=== PATIENT | female | born 1945 ===

== ENCOUNTER 2017-10-28 23:02 | Inpatient (IN) | payer MEDICARE, MEDICAID ==
[2017-10-28 23:08] VITALS: O2SAT 98
--- NOTE | 2017-10-28 23:27 | ED PDOC ---
Psych Transfer Clearance - Clearance Statement Clearance Statement: Reviewed vital signs, lab results and transfer papers. Patient clinically stable for psychiatric admission.
[2017-10-28] MEDS ORDERED: Magnesium Hydroxide Susp 30 ml UD PO PRN (23:59)
[2017-10-28] MEDS ORDERED: Alum-Mag Hydrox-Simethicone Susp (30 mL) PO PRN (23:59)
[2017-10-28] MEDS ORDERED: Bismuth Subsalicylate 262 mg/15 ml Sus (240 ml) PO PRN (23:59)
--- NOTE | 2017-10-29 00:09 | PCM.BM ---
<Matilde Cabral - Last Filed: 10/29/17 00:07> Treatment Plan Problems - Problems identified on initial assessmt Agitated/aggressive behavior Date Initiated: 10/29/17 Time Initiated: 00:07 Assessment reference: NA Status: Active Ineffective impulse control Date Initiated: 10/29/17 Time Initiated: 00:08 Assessment reference: NA Status: Active Treatment assets and liabiliti Patient Assests: good support system Patient Liabilities: medical problems, imparied memory - Milieu Protocol Maintain good personal hygiene: daily Encourage regular showers, daily Remind patient to perform daily oral care, other Assist patient to perform ADL's (prn) Conduct patient checks and document Observation sheet: Q15 minutes Maintain personal safety: every shift Educate patient to report safety concerns to staff, every shift Monitor environment for contraband/sharps Medication safety: Monitor for expected outcome, potential side effects: every shift, Assess barriers to learning: every shift, Assess readiness for medication education: every shift <Merissa Jones - Last Filed: 10/29/17 10:20> - Diagnosis (1) Dementia with behavioral disturbance Status: Acute Interventions: Medication management, Individual and group therapy, Psychoeducation 10/29/17 10:20 <Shree Richardson - Last Filed: 11/04/17 11:17> Family Contact Family involvement: Family/SO is involved Family contact: Patient agrees to contact, Family has been contacted by patient , Telephone contact initiated by staff Family contact name: Karla (Daughter/YONI [phone]) Family contacted how many times per week?: 3 Family contact comment: Leather Whitener spoke with pt's daughter and Karla VALLEJO [phone], to introduce himself and explain that services and dynamics of the unit. Leather Whitener explained main goals of pt's treatment to stabilize her mood/behaviors and eventually refer her back to [facility] in [place]. Karla had no questions at this time as she had already spoken with Dr. Jones. Karla did report that her uncle two days ago, so she and her would be out of town for several days. - Goals for Treatment Patient goals for treatment: Unable to provide. Patient's family/SO goals for treatment: Daughter would like pt to be stabilized on medication so she is calmer and more behaviorally controlled. Discharge/Continuing Care - Education Needs Education Needs: Family Medication, Family Diagnosis/Disease Process, Family Placement options, Family Aftercare Safety Plan, Patient Medication, Patient Diagnosis/Disease Process, Patient Placement options, Patient Aftercare Safety Plan - Discharge Discharge Criteria: Tolerates medication w/o severe side effects, Free of agitation, Normal sleep pattern, Reduction of target symptoms Discharge to:: Custodial Facility - Treatment Team Participation Discussed with Family/SO: Yes Was Patient/Family/SO present at Treatment Team Meeting: Yes
[2017-10-29] MEDS ORDERED: Bisacodyl 5mg EC Tab PO PRN (06:32)
[2017-10-29 06:47] LABS: HEMOGLOBIN 13.4 g/dL (12.0-16.0); MEAN CELL VOLUME 93.3 fl (81.0-99.0); MEAN CORPUSCULAR HEMOGLOBIN 30.8 pg (27.0-31.0); RBC 4.34 Mil/uL (3.80-5.20); RED CELL DISTRIBUTION WIDTH 15.3 % (11.5-14.5); WHITE BLOOD COUNT 4.2 K/uL (4.8-10.8)
[2017-10-29 06:49] LABS: ALBUMIN 4.2 g/dL (3.5-5.0); ALT/SGPT 38 U/L (9-52); AST/SGOT 49 U/L (14-36); BLOOD UREA NITROGEN 14 mg/dl (7-17); CALCIUM 9.1 mg/dL (8.4-10.2); GFR AFRICAN-AMERICAN > 60; GFR NON-AFRICAN AMERICAN > 60; HDL CHOLESTEROL 49 MG/DL (30-70)
[2017-10-29 06:58] LABS: IRON 16 ug/dL (37-170)
[2017-10-29 07:02] LABS: LDL CHOLESTEROL 77 mg/dL (0-129)
[2017-10-29 07:07] LABS: % IRON SATURATION 6 % (20-55); TOTAL IRON BINDING CAPACITY 245 ug/dL (250-450)
[2017-10-29 07:08] LABS: T4 9.26 ug/dl (5.5-11.0)
--- NOTE | 2017-10-29 11:38 | CP.PCM.CON ---
History of Present Illness - History of Present Illness History of Present Illness: 72 yo pmhx of Dementia with behavioral aggression presented to [facility] with agitation, aggression and hostility. Due to her current state of decreased mental clarity and appropriate interaction, most of her history was gathered by staff from her daughter. She was observed to punch, kick, spit on staff. Currently, she was seen and examined at bedside lying in a R sided contracted state. Her interaction was limited due to recent aggression with a recent administered dose of Ativan 0.5 mg. Her speech was limited and incoherent. Review of Systems - Constitutional Constitutional: As Per HPI Past Patient History - Past Medical History & Family History Past Medical History?: Yes - Past Social History Smoking Status: Unknown If Ever Smoked Home Situation {Lives}: Snf - CARDIAC Hx Cardiac Disorders: No Hx Hypertension: No - PULMONARY Hx Tuberculosis: No - NEUROLOGICAL HX Cerebrovascular Accident: No Hx Seizures: No - HEMATOLOGICAL/ONCOLOGICAL Hx Cancer: No Hx Human Immunodeficiency Virus (HIV): No - MUSCULOSKELETAL/RHEUMATOLOGICAL Hx Falls: Yes - GENITOURINARY/GYNECOLOGICAL Hx Sexually Transmitted Disorders: No - PSYCHIATRIC Hx Psychosis: Yes Hx Substance Use: No Other/Comment: Dementia - SURGICAL HISTORY Other/Comment: s/p fx left 5th metacarpal - ANESTHESIA Hx Anesthesia Reactions: No Meds Allergies/Adverse Reactions: Allergies Allergy/AdvReac Type Severity Reaction Status Date / Time Penicillins Allergy SHORTNESS Verified 10/27/17 18:04 OF BREATH - Medications Medications: Current Medications Acetaminophen (Tylenol 325mg Tab) 650 mg PO Q4 PRN PRN Reason: Pain, moderate (4-7) Al Hydrox/Mg Hydrox/Simethicone (Maalox Plus 30 Ml) 30 ml PO Q4 PRN PRN Reason: Dyspepsia Bisacodyl (Dulcolax) 10 mg PO DAILY PRN PRN Reason: Constipation Bismuth Subsalicylate (Pepto-Bismol) 524 mg PO Q4 PRN PRN Reason: Diarrhea Haloperidol (Haldol) 0.5 mg PO Q4 PRN PRN Reason: Agitation Last Admin: 10/29/17 01:25 Dose: 0.5 mg Haloperidol Lactate (Haldol) 0.5 mg IM Q4 PRN PRN Reason: Agitation Lorazepam (Ativan) 0.5 mg PO HS PRN PRN Reason: Insomnia Stop: 11/11/17 23:59 Lorazepam (Ativan) 0.5 mg PO Q6 PRN PRN Reason: Anixety/Agitation Stop: 11/11/17 23:59 Last Admin: 10/29/17 08:54 Dose: 0.5 mg Magnesium Hydroxide (Milk Of Magnesia) 30 ml PO HS PRN PRN Reason: Constipation Memantine (Namenda) 10 mg PO BID IVONNE Last Admin: 10/29/17 08:54 Dose: 10 mg Sennosides (Senokot Tab) 8.6 mg PO HS IVONNE Physical Exam - Constitutional Appears: No Acute Distress - Eye Exam Eye Exam: EOMI - Neck Exam Neck exam: Positive for: Full Rom - Respiratory Exam Respiratory Exam: Clear to Auscultation Bilateral, NORMAL BREATHING PATTERN. absent: Wheezes - Cardiovascular Exam Cardiovascular Exam: +S1, +S2 - GI/Abdominal Exam GI & Abdominal Exam: Normal Bowel Sounds, Soft. absent: Tenderness - Neurological Exam Neurological exam: Altered Results - Vital Signs Recent Vital Signs: Last Vital Signs Temp 98.0 F 10/28/17 23:05 Pulse 83 10/28/17 23:05 Resp 16 10/28/17 23:05 BP 127/81 10/28/17 23:05 Pulse Ox 98 10/28/17 23:05 - Labs Result Diagrams: 10/29/17 05:45 10/29/17 05:45 Labs: Laboratory Results - last 24 hr 10/29/17 10/29/17 10/29/17 05:45 05:45 05:45 WBC 4.2 L RBC 4.34 Hgb 13.4 Hct 40.5 MCV 93.3 MCH 30.8 MCHC 33.0 RDW 15.3 H Plt Count 214 Sodium 147 Potassium 3.7 Chloride 108 H Carbon Dioxide 23 Anion Gap 20 BUN 14 Creatinine 0.7 Est GFR ( Amer) > 60 Est GFR (Non-Af Amer) > 60 Random Glucose 103 Calcium 9.1 Iron 16 L TIBC 245 L % Saturation 6 L Ferritin 301.0 H Total Bilirubin 0.9 AST 49 H ALT 38 Alkaline Phosphatase 103 Total Protein 8.4 H Albumin 4.2 Globulin 4.2 H Albumin/Globulin Ratio 1.0 Triglycerides 86 Cholesterol 175 LDL Cholesterol Direct 77 HDL Cholesterol 49 Vitamin B12 488 Free T4 Thyroxine (T4) 9.26 TSH 3rd Generation 0.38 L 10/29/17 05:45 WBC RBC Hgb Hct MCV MCH MCHC RDW Plt Count Sodium Potassium Chloride Carbon Dioxide Anion Gap BUN Creatinine Est GFR ( Amer) Est GFR (Non-Af Amer) Random Glucose Calcium Iron TIBC % Saturation Ferritin Total Bilirubin AST ALT Alkaline Phosphatase Total Protein Albumin Globulin Albumin/Globulin Ratio Triglycerides Cholesterol LDL Cholesterol Direct HDL Cholesterol Vitamin B12 Free T4 1.24 Thyroxine (T4) TSH 3rd Generation Assessment & Plan - Assessment and Plan (Free Text) Plan: 72 yo F pmhx of dementia and behavioral aggression presented to [facility] with agitation, aggression and hostility. 1) Dementia with aggression - Memantine 10 mg PO BID - Ativan 0.5 mg PO - Currently managed by Psychiatry 2) DVT prophylaxis -scd boots. Consider Lovenox
--- NOTE | 2017-10-29 12:38 | PCM.PSYCH ---
Initial Psychiatric Evaluation - Initial Psychiatric Evaluation Type of Admission: Voluntary Legal Status: DPOA Chief Complaint (in patient's own words): Patient unable to communicate CC; as per daughter- aggression/agitation Patient's Reaction to Hospitalization: HPI: 72 yo female w/ h/o dementia w/ behavioral disturbances, presents w/ worsening aggression, agitation, threatening others, talking to herself and chronic memory deficits. She is unable to engage in interview or answer questions appropriately. While on the psychiatry unit, she has been observed to be acutely agitated, aggressive, difficult to redirect, yelling and making offensive comments to staff. PMHx: Constipation, Dementia PPHx: As per daughter, two past psychiatric admissions for dementia with behavioral disturbances. Patient has been treated w/ Risperdal, Seroquel, Depakote, Ativan and Klonopin in the past. She is currently prescribed Klonopin and Ativan. ALL: PCN SHx: [facility]. Medical decisions are made by her daughter, Karla, . Current Medications: Active Medications Generic Name Dose Route Start Last Admin Trade Name Freq PRN Reason Stop Dose Admin Acetaminophen 650 mg 10/28/17 23:59 Tylenol 325mg Tab PO Q4 PRN Pain, moderate (4-7) Al Hydrox/Mg Hydrox/Simethicone 30 ml 10/28/17 23:59 Maalox Plus 30 Ml PO Q4 PRN Dyspepsia Bisacodyl 10 mg 10/29/17 06:32 Dulcolax PO DAILY PRN Constipation Bismuth Subsalicylate 524 mg 10/28/17 23:59 Pepto-Bismol PO Q4 PRN Diarrhea Haloperidol 0.5 mg 10/29/17 00:05 10/29/17 01:25 Haldol PO 0.5 mg Q4 PRN Administration Agitation Haloperidol Lactate 0.5 mg 10/29/17 00:06 Haldol IM Q4 PRN Agitation Lorazepam 0.5 mg 10/28/17 23:59 Ativan PO 11/11/17 23:59 HS PRN Insomnia Lorazepam 0.5 mg 10/28/17 23:59 10/29/17 08:54 Ativan PO 11/11/17 23:59 0.5 mg Q6 PRN Administration Anixety/Agitation Magnesium Hydroxide 30 ml 10/28/17 23:59 Milk Of Magnesia PO HS PRN Constipation Memantine 10 mg 10/29/17 09:00 10/29/17 08:54 Namenda PO 10 mg BID IVONNE Administration Sennosides 8.6 mg 10/29/17 22:00 Senokot Tab PO HS IVONNE Past Psychiatric History - Past Psychiatric History Previous Treatment History: Inpatient Pertinent Medical Hx (Current Medical&Sleep Prob, Allergies): Allergies Allergy/AdvReac Type Severity Reaction Status Date / Time Penicillins Allergy SHORTNESS Verified 10/27/17 18:04 OF BREATH Acetaminophen [Tylenol 325mg tab] 650 mg PO PRN PRN 10/27/17 Acidoph/L.bulg/Bif.b/S.thermop [Iesha-Bid Caplet] 250 mg PO BID 10/27/17 Bisacodyl [Woman's Laxative] 10 mg PO PRN PRN 10/27/17 Clonazepam [Klonopin] 0.5 mg PO BID 10/27/17 LORazepam [Ativan] 0.5 mg PO Q8 PRN 10/27/17 Linaclotide [Linzess] 145 mcg PO DAILY 10/27/17 Magnesium Hydroxide [Milk Of Magnesia] 30 ml PO PRN PRN 10/27/17 Memantine [Namenda] 10 mg PO BID 10/27/17 Saline Enema 1 PRN PRN 10/27/17 Sennosides [Senna] 8.6 mg PO HS 10/27/17 Review of Systems - Psychiatric Psychiatric: Abnormal Sleep Pattern, Anxiety, Behavioral Changes, Memory Loss, Mood Swings, Other (Behavioral disturbances) Mental Status Examination - Personal Presentation Personal Presentation: Looks stated age - Affect Affect: Constricted - Motor Activity Motor Activity: Psychomotor Agitation - Reliability in Providing Information Reliability in Providing Information: Poor, due to cognitve impairment - Speech Speech: Irrelevant, Incoherent - Formal Thought Process Formal Thought Process: Loosening of associations - Hallucinations/Delusions Additional comments: Unable to answer directly if she has AH/VH/paranoia/delusions due to dementia - Cognitive Functions Orientation: Person Attention/Concentration: Easily distracted Judgement: Imparied, as evidence by: Poor judgement, Imparied, as evidence by: Lack of insight into illness Memory: Recent impaired, as evidence by: Inability to recall events of the day, Recent imparied as evidence by:Inability to complete 3/3 object recall, Remote impaired as evidenced by: Inability to recall sig life events, Remote impaired as evidenced by: Inability to recall historical events - Risk Risk: Diminished functioning - Strength & Assets Inventory Strength & Assets Inventory: Family support - Limitations Limitations: Decreased memory, recent DSM 5 DX - DSM 5 DSM 5 Diagnosis: Dementia with behavioral disturbances - Recommended/Plan of Treatment Treatment Recommendations and Plan of Treatment: Dementia with behavioral disturbances -Admit to geriatric psychiatry unit -Case discussed w/ patient's Karla silver -Continue Namenda 10 mg PO BID -Start Aricept 5 mg PO HS -Start Depakote Sprinkles 125 mg PO BID, will f/u VPA level -1:1 for safety -Medicine consult -PT evaluation -Disposition planning Projected ELOS: 5-8 days Discharge Plan and Discharge Criteria: Discharge patient when she is psychiatrically stable - Smoking Cessation Smoking Cessation Initiated: No Reason for not providing: Not indicated
[2017-10-29 13:59] LABS: FOLATE 14.2 ng/mL
[2017-10-29] MEDS: Divalproex 125 mg Sprinkle Capsule PO SCH (16:31)
[2017-10-30] MEDS: Divalproex 125 mg Sprinkle Capsule PO SCH ×2 (08:13→17:06)
--- NOTE | 2017-10-30 10:51 | PCM.PYCHPN ---
Psychiatric Progress Note - Psychiatric Progress Note Patient seen today, length of contact: Patient evaluated, case discussed with team, chart reviewed Patient Chief Complaint: Patient unable to talk coherently most of the time Problems Identified/Issues Discussed: Yesterday patient was acutely agitated with staff, yelling, spitting, trying to get out of bed, moving her arms to hit people. Today she is calmer, but labile , cries spontaneously. She does not answer questions appropriately. Only oriented x 1. Jet Mechanic spoke with patient's daughter, who was agreeable to her restarting Depakote and Seroquel if necessary. She stated that the Risperdal cause her to have movement problems and a fall. Jet Mechanic spoke w/ patient's primary psychiatrist, Dr. Montaño, who stated that that patient would benefit from restarting Depakote at this time and she was psychiatrically stabilized on that in the past. Medication Change: No Medical Record Reviewed: Yes Consults ordered or reviewed: Medicine, PT Mental Status Examination - Cognitive Function Orientation: Person Memory: Impaired Attention: Poor Concentration: Poor Association: Loose Fund of Knowledge: Poor Decription of patient's judgement and insights: Poor I/J - Affect Affect: Other (Labile) - Formal Thought Process Formal Thought Process: Loosening of associations Psychotic Thoughts and Behaviors: Unable to answer if she has AH or VH Goal/Treatment Plan - Goal/Treatment Plan Need for Continued Stay: Remain at risks for inpatient hospitalization, Discharge may exacerbated symptoms, Severe functional impairment Progress Toward Problem(s) and Goals/Treatment Plan: Dementia with behavioral disturbances -Case discussed w/ patient's Karla islver -Case discussed w/ patient's primary psychiatrist -Continue Namenda 10 mg PO BID -Continue Aricept 5 mg PO HS -Continue Depakote Sprinkles 125 mg PO BID, will f/u VPA level -1:1 for safety -Medicine consult -PT -Disposition planning Estimated Date of D/C: 11/04/17
[2017-10-31] MEDS: Divalproex 125 mg Sprinkle Capsule PO SCH (10:08)
--- NOTE | 2017-10-31 11:44 | PCM.PYCHPN ---
Psychiatric Progress Note - Psychiatric Progress Note Patient seen today, length of contact: Patient evaluated, case discussed with team, chart reviewed Patient Chief Complaint: Patient unable to talk coherently most of the time Problems Identified/Issues Discussed: Patient continues to be verbally and physically aggressive with staff, yelling, spitting and attempting to hit and scratch others. She continues to be labile. A + O x 1 as per her baseline. Patient unable to answer questions appropriately. Medication Change: Yes (Increase Depakote) Medical Record Reviewed: Yes Consults ordered or reviewed: Medicine, PT Mental Status Examination - Cognitive Function Orientation: Person Memory: Impaired Attention: Poor Concentration: Poor Association: Loose Fund of Knowledge: Poor Decription of patient's judgement and insights: Poor I/J - Affect Affect: Other (Labile) - Formal Thought Process Formal Thought Process: Loosening of associations Psychotic Thoughts and Behaviors: Unable to answer if she has AH or VH Goal/Treatment Plan - Goal/Treatment Plan Need for Continued Stay: Remain at risks for inpatient hospitalization, Discharge may exacerbated symptoms, Severe functional impairment Progress Toward Problem(s) and Goals/Treatment Plan: Dementia with behavioral disturbances -Case discussed w/ patient's Karla silver -Case discussed w/ patient's primary psychiatrist -Continue Namenda 10 mg PO BID -Continue Aricept 5 mg PO HS -Increase Depakote to 125 mg PO AM/ 250 mg PO Daily@1700; will continue to titrate and check VPA level -1:1 for safety -Medicine consult -PT -Disposition planning Estimated Date of D/C: 11/04/17
[2017-10-31] MEDS: Divalproex 250 mg DR(BID formulation) PO SCH (16:36)
[2017-11-01] MEDS: Divalproex 250 mg DR(BID formulation) PO SCH ×3 (08:41→16:57)
--- NOTE | 2017-11-01 13:20 | PCM.PYCHPN ---
Psychiatric Progress Note - Psychiatric Progress Note Patient seen today, length of contact: Patient evaluated, case discussed with team, chart reviewed Patient Chief Complaint: give me your hand Problems Identified/Issues Discussed: pt seen in bed , anxious mood and affect, speech loud but not goal directed, patient oriented to person only , no insight into illness, no reported suicidal or homicidal ideations DSM 5 Symptoms Update: major neurocognitive disorder with behavioral disturbances Medication Change: Yes (Increase Depakote) Medical Record Reviewed: Yes Mental Status Examination - Cognitive Function Orientation: Person Memory: Impaired Attention: Poor Concentration: Poor Association: Loose Fund of Knowledge: Poor - Mood Mood: Anxious - Affect Affect: Constricted, Other (Labile) - Formal Thought Process Formal Thought Process: Loosening of associations - Suicidal Ideation Suicidal Ideation: No - Homicidal Ideation Homicidal Ideation: No Goal/Treatment Plan - Goal/Treatment Plan Need for Continued Stay: Remain at risks for inpatient hospitalization, Discharge may exacerbated symptoms, Severe functional impairment Progress Toward Problem(s) and Goals/Treatment Plan: increase depakote to 250mg tid follow up on depakote level in three days continue 1:1 observation for pt safety Estimated Date of D/C: 11/04/17
[2017-11-02] MEDS ORDERED: Divalproex 125 mg Sprinkle Capsule PO STA (10:12)
--- NOTE | 2017-11-02 10:18 | PCM.PYCHPN ---
Psychiatric Progress Note - Psychiatric Progress Note Patient seen today, length of contact: Patient evaluated, case discussed with team, chart reviewed Patient Chief Complaint: please hold my hand Problems Identified/Issues Discussed: pt seen in bed , anxious mood and affect, speech loud , not goal directed, patient alert and awake, oriented to person only , no insight into illness, no reported suicidal or homicidal ideations DSM 5 Symptoms Update: major neurocognitive disorder with behavioral disturbances Medication Change: Yes (change Depakote to sprinkles) Medical Record Reviewed: Yes Mental Status Examination - Cognitive Function Orientation: Person Memory: Impaired Attention: Poor Concentration: Poor Association: Loose Fund of Knowledge: Poor - Mood Mood: Anxious - Affect Affect: Constricted, Other (Labile) - Formal Thought Process Formal Thought Process: Loosening of associations - Suicidal Ideation Suicidal Ideation: No - Homicidal Ideation Homicidal Ideation: No Goal/Treatment Plan - Goal/Treatment Plan Need for Continued Stay: Remain at risks for inpatient hospitalization, Discharge may exacerbated symptoms, Severe functional impairment Progress Toward Problem(s) and Goals/Treatment Plan: depakote sprinkles 250mg tid, uptitrate gradually follow up on depakote level continue 1:1 observation for pt safety Estimated Date of D/C: 11/04/17
[2017-11-02] MEDS: Divalproex 125 mg Sprinkle Capsule PO SCH ×2 (13:38→21:25)
[2017-11-03] MEDS: Divalproex 125 mg Sprinkle Capsule PO SCH ×3 (08:56→17:22)
--- NOTE | 2017-11-03 09:55 | PCM.PYCHPN ---
Psychiatric Progress Note - Psychiatric Progress Note Patient seen today, length of contact: Patient evaluated, case discussed with team, chart reviewed Patient Chief Complaint: Patient unable to talk coherently most of the time Problems Identified/Issues Discussed: Patient continues to be intermittently verbally and physically aggressive towards staff. She continues to be labile. A + O x 1 as per her baseline. Patient unable to answer questions appropriately. Diagnostic Results: VPA 70.9 on 11/03/17 Medication Change: No Medical Record Reviewed: Yes Mental Status Examination - Cognitive Function Orientation: Person Memory: Impaired Attention: Poor Concentration: Poor Association: Loose Fund of Knowledge: Poor Decription of patient's judgement and insights: Poor I/J - Affect Affect: Constricted, Other (Labile) - Formal Thought Process Formal Thought Process: Loosening of associations Psychotic Thoughts and Behaviors: Patient unable to answer questions about AH/VH - Suicidal Ideation Suicidal Ideation: No - Homicidal Ideation Homicidal Ideation: No Goal/Treatment Plan - Goal/Treatment Plan Need for Continued Stay: Remain at risks for inpatient hospitalization, Discharge may exacerbated symptoms, Severe functional impairment Progress Toward Problem(s) and Goals/Treatment Plan: Dementia with behavioral disturbances -Case discussed w/ patient's daughterKarla -Case discussed w/ patient's primary psychiatrist -Continue Namenda 10 mg PO BID -Continue Aricept 5 mg PO HS -Continue Depakote 250 mg PO TID; VPA 70.9 on 11/03/17 -1:1 for safety -Medicine consult -PT -Disposition planning Estimated Date of D/C: 11/07/17
--- NOTE | 2017-11-03 15:18 | RAD ---
PROCEDURE: CHEST RADIOGRAPH, 1 VIEW HISTORY: difficulty swallowing COMPARISON: None available. FINDINGS: LUNGS: Clear. PLEURA: No pneumothorax or pleural fluid seen. CARDIOVASCULAR: Normal. OSSEOUS STRUCTURES: No significant abnormalities. VISUALIZED UPPER ABDOMEN: Normal. OTHER FINDINGS: Cervical thoracic orthopedic hardware incompletely visualized. IMPRESSION: No active disease.
[2017-11-04] MEDS: Divalproex 125 mg Sprinkle Capsule PO SCH ×3 (09:17→17:53)
--- NOTE | 2017-11-04 09:22 | PCM.PYCHPN ---
Psychiatric Progress Note - Psychiatric Progress Note Patient seen today, length of contact: Patient evaluated, case discussed with team, chart reviewed Patient Chief Complaint: Patient unable to talk coherently most of the time Problems Identified/Issues Discussed: Patient is calmer, but continues to have periods of agitation. She is less physically aggressive. She continues to be labile. A + O x 1 as per her baseline. Patient unable to answer questions appropriately. Diagnostic Results: VPA 70.9 on 11/03/17 Medication Change: Yes (Start Seroquel 50 mg PO Daily@1700) Medical Record Reviewed: Yes Consults ordered or reviewed: Medicine, PT Mental Status Examination - Cognitive Function Orientation: Person Memory: Impaired Attention: Poor Concentration: Poor Association: Loose Fund of Knowledge: Poor Decription of patient's judgement and insights: Poor I/J - Mood Mood: Anxious - Affect Affect: Constricted, Other (Labile) - Formal Thought Process Formal Thought Process: Loosening of associations Psychotic Thoughts and Behaviors: Patient unable to answer questions about AH/VH - Suicidal Ideation Suicidal Ideation: No - Homicidal Ideation Homicidal Ideation: No Goal/Treatment Plan - Goal/Treatment Plan Need for Continued Stay: Remain at risks for inpatient hospitalization, Discharge may exacerbated symptoms, Severe functional impairment Progress Toward Problem(s) and Goals/Treatment Plan: Dementia with behavioral disturbances -Case discussed w/ patient's daughterKarla -Case discussed w/ patient's primary psychiatrist -Start Seroquel 50 mg PO Daily@1700 -Continue Namenda 10 mg PO BID -Continue Aricept 5 mg PO HS -Continue Depakote 250 mg PO TID; VPA 70.9 on 11/03/17; recheck VPA on 11/06/16 -1:1 for safety -Medicine consult -PT -Disposition planning Estimated Date of D/C: 11/07/17
--- NOTE | 2017-11-05 07:07 | PCM.PYCHPN ---
Psychiatric Progress Note - Psychiatric Progress Note Patient seen today, length of contact: Patient evaluated, case discussed with team, chart reviewed Patient Chief Complaint: Patient unable to talk coherently most of the time Problems Identified/Issues Discussed: Patient is calmer, but continues to have intermittent periods of agitation, w/ verbal and physical aggression. She has improved sleep. A + O x 1 as per her baseline. Patient unable to answer questions appropriately. Diagnostic Results: VPA 70.9 on 11/03/17 Medication Change: Yes (Increase Seroquel to 50 mg PO BID) Medical Record Reviewed: Yes Consults ordered or reviewed: Medicine, PT Mental Status Examination - Cognitive Function Orientation: Person Memory: Impaired Attention: Poor Concentration: Poor Association: Loose Fund of Knowledge: Poor Decription of patient's judgement and insights: Poor I/J - Affect Affect: Constricted - Formal Thought Process Formal Thought Process: Loosening of associations Psychotic Thoughts and Behaviors: Patient unable to answer questions about AH/VH - Suicidal Ideation Suicidal Ideation: No - Homicidal Ideation Homicidal Ideation: No Goal/Treatment Plan - Goal/Treatment Plan Need for Continued Stay: Remain at risks for inpatient hospitalization, Discharge may exacerbated symptoms, Severe functional impairment Progress Toward Problem(s) and Goals/Treatment Plan: Dementia with behavioral disturbances -Case discussed w/ patient's daughterKarla -Case discussed w/ patient's primary psychiatrist -Increase Seroquel to 50 mg PO BID -Continue Namenda 10 mg PO BID -Continue Aricept 5 mg PO HS -Continue Depakote 250 mg PO TID; VPA 70.9 on 11/03/17; recheck VPA on 11/06/16 -1:1 for safety -Medicine consult -PT -Disposition planning Estimated Date of D/C: 11/07/17
[2017-11-05] MEDS: Divalproex 125 mg Sprinkle Capsule PO SCH ×3 (08:45→17:23)
--- NOTE | 2017-11-05 15:58 | PCM.BM ---
Treatment Plan Problems - Problems identified on initial assessmt Agitated/aggressive behavior Date Initiated: 10/29/17 Time Initiated: 00:07 Assessment reference: NA Status: Active Ineffective impulse control Date Initiated: 10/29/17 Time Initiated: 00:08 Assessment reference: NA Status: Active Treatment assets and liabiliti Patient Assests: good support system Patient Liabilities: medical problems, imparied memory - Milieu Protocol Maintain good personal hygiene: daily Encourage regular showers, daily Remind patient to perform daily oral care, other Assist patient to perform ADL's (prn) Conduct patient checks and document Observation sheet: Q15 minutes Maintain personal safety: every shift Educate patient to report safety concerns to staff, every shift Monitor environment for contraband/sharps Medication safety: Monitor for expected outcome, potential side effects: every shift, Assess barriers to learning: every shift, Assess readiness for medication education: every shift Milieu Narrative: Dementia with behavioral disturbances -Case discussed w/ patient's daughterKarla -Case discussed w/ patient's primary psychiatrist -Increase Seroquel to 50 mg PO BID -Continue Namenda 10 mg PO BID -Continue Aricept 5 mg PO HS -Continue Depakote 250 mg PO TID; VPA 70.9 on 11/03/17; recheck VPA on 11/06/16 -1:1 for safety -Medicine consult -PT -Disposition planning Family Contact Family involvement: Family/SO is involved Family contact: Patient agrees to contact, Family has been contacted by patient , Telephone contact initiated by staff Family contact name: Karla (Daughter/YONI [phone]) Family contacted how many times per week?: 3 Family contact comment: Swimming Teacher spoke with pt's daughter and Karla VALLEJO , to introduce himself and explain that services and dynamics of the unit. Swimming Teacher explained main goals of pt's treatment to stabilize her mood/behaviors and eventually refer her back to [facility] in [place]. Karla had no questions at this time as she had already spoken with Dr. Jones. Karla did report that her uncle two days ago, so she and her would be out of town for several days. - Goals for Treatment Patient goals for treatment: Unable to provide. Patient's family/SO goals for treatment: Daughter would like pt to be stabilized on medication so she is calmer and more behaviorally controlled. Discharge/Continuing Care - Education Needs Education Needs: Family Medication, Family Diagnosis/Disease Process, Family Placement options, Family Aftercare Safety Plan, Patient Medication, Patient Diagnosis/Disease Process, Patient Placement options, Patient Aftercare Safety Plan - Discharge Discharge Criteria: Tolerates medication w/o severe side effects, Free of agitation, Normal sleep pattern, Reduction of target symptoms Discharge to:: [facility] - Treatment Team Participation Patient/Family/SO Statement: Dementia with behavioral disturbances -Case discussed w/ patient's daughterKarla -Case discussed w/ patient's primary psychiatrist -Increase Seroquel to 50 mg PO BID -Continue Namenda 10 mg PO BID -Continue Aricept 5 mg PO HS -Continue Depakote 250 mg PO TID; VPA 70.9 on 11/03/17; recheck VPA on 11/06/16 -1:1 for safety -Medicine consult -PT -Disposition planning Discussed with Family/SO: Yes Was Patient/Family/SO present at Treatment Team Meeting: Yes Treatment Plan Review - Problem Agitated/aggressive behavior Time Initiated: 00:07 Ineffective impulse control Time Initiated: 00:08 - Discharge / Continuing Care Discharge to:: [facility] Behavioral Health Services: Residential treatment Health Needs: Follow up care/test, Medications/Rx (Pt still being stabilized with medication and once stabilized to a agreed upon level will be transported back to [facility]. )
[2017-11-06] MEDS: Divalproex 125 mg Sprinkle Capsule PO SCH ×3 (08:35→18:03)
--- NOTE | 2017-11-06 08:49 | PCM.PYCHPN ---
Psychiatric Progress Note - Psychiatric Progress Note Patient seen today, length of contact: Patient evaluated, case discussed with team, chart reviewed Patient Chief Complaint: Patient unable to talk coherently most of the time Problems Identified/Issues Discussed: Patient is calmer, but continues to have intermittent periods of agitation and is intermittent aggressive towards others. A + O x 1 as per her baseline. Patient unable to answer questions appropriately. Diagnostic Results: VPA 70.9 on 11/03/17 Medication Change: No Medical Record Reviewed: Yes Consults ordered or reviewed: Medicine, PT Mental Status Examination - Cognitive Function Orientation: Person Memory: Impaired Attention: Poor Concentration: Poor Association: Loose Fund of Knowledge: Poor Decription of patient's judgement and insights: Poor I/J - Affect Affect: Constricted - Formal Thought Process Formal Thought Process: Loosening of associations Psychotic Thoughts and Behaviors: Patient unable to answer questions about AH/VH - Suicidal Ideation Suicidal Ideation: No - Homicidal Ideation Homicidal Ideation: No Goal/Treatment Plan - Goal/Treatment Plan Need for Continued Stay: Remain at risks for inpatient hospitalization, Discharge may exacerbated symptoms, Severe functional impairment Progress Toward Problem(s) and Goals/Treatment Plan: Dementia with behavioral disturbances -Case discussed w/ patient's daughterKarla -Case discussed w/ patient's primary psychiatrist -Continue Seroquel 50 mg @1200/ 50 mg @1700 -Continue Namenda 10 mg PO BID -Continue Aricept 5 mg PO HS -Continue Depakote 250 mg PO TID; VPA 70.9 on 11/03/17; recheck VPA on 11/06/16 -1:1 for safety -Medicine consult -PT -Disposition planning Estimated Date of D/C: 11/10/17
[2017-11-07] MEDS: Divalproex 125 mg Sprinkle Capsule PO SCH ×3 (08:10→16:48)
--- NOTE | 2017-11-07 12:43 | PCM.PYCHPN ---
Psychiatric Progress Note - Psychiatric Progress Note Patient seen today, length of contact: Patient evaluated, case discussed with team, chart reviewed Patient Chief Complaint: Patient unable to talk coherently most of the time Problems Identified/Issues Discussed: Patient continues to have periods of agitation, is verbally and physically aggressive towards others. She needs continued 1:1. A + O x 1 as per her baseline. Patient unable to answer questions appropriately. Diagnostic Results: VPA 70.9 on 11/03/17; VPA 75.9 on 11/06/17 Medication Change: Yes (Increase Seroquel ) Medical Record Reviewed: Yes Consults ordered or reviewed: Medicine, PT Mental Status Examination - Cognitive Function Orientation: Person Memory: Impaired Attention: Poor Concentration: Poor Association: Loose Fund of Knowledge: Poor Decription of patient's judgement and insights: Poor I/J - Affect Affect: Constricted - Formal Thought Process Formal Thought Process: Loosening of associations Psychotic Thoughts and Behaviors: Patient unable to answer questions about AH/VH - Suicidal Ideation Suicidal Ideation: No - Homicidal Ideation Homicidal Ideation: No Goal/Treatment Plan - Goal/Treatment Plan Need for Continued Stay: Remain at risks for inpatient hospitalization, Discharge may exacerbated symptoms, Severe functional impairment Progress Toward Problem(s) and Goals/Treatment Plan: Dementia with behavioral disturbances -Case discussed w/ patient's daughterKarla -Case discussed w/ patient's primary psychiatrist -Increase Seroquel to 50 mg PO TID -Continue Namenda 10 mg PO BID -Continue Aricept 5 mg PO HS -Continue Depakote 250 mg PO TID; VPA 70.9 on 11/03/17; VPA 75.9 on 11/06/17 -1:1 for safety -Medicine consult -PT -Disposition planning Estimated Date of D/C: 11/10/17
--- NOTE | 2017-11-08 07:27 | PCM.PYCHPN ---
Psychiatric Progress Note - Psychiatric Progress Note Patient seen today, length of contact: Patient evaluated, case discussed with team, chart reviewed Patient Chief Complaint: Patient unable to talk coherently most of the time Problems Identified/Issues Discussed: Patient is improving clinically. She is calmer and less agitated/aggressive. She sleeps well at night. A + O x 1 as per her baseline. Patient unable to answer questions appropriately. Diagnostic Results: VPA 70.9 on 11/03/17; VPA 75.9 on 11/06/17 Medication Change: No Medical Record Reviewed: Yes Consults ordered or reviewed: Medicine, PT Mental Status Examination - Cognitive Function Orientation: Person Memory: Impaired Attention: Poor Concentration: Poor Association: Loose Fund of Knowledge: Poor Decription of patient's judgement and insights: Poor I/J - Mood Mood: Anxious - Affect Affect: Constricted - Formal Thought Process Formal Thought Process: Loosening of associations Psychotic Thoughts and Behaviors: Patient unable to answer questions about AH/VH - Suicidal Ideation Suicidal Ideation: No - Homicidal Ideation Homicidal Ideation: No Goal/Treatment Plan - Goal/Treatment Plan Need for Continued Stay: Remain at risks for inpatient hospitalization, Severe functional impairment Progress Toward Problem(s) and Goals/Treatment Plan: Dementia with behavioral disturbances -Case discussed w/ patient's daughterKarla -Case discussed w/ patient's primary psychiatrist -Continue Seroquel 50 mg PO TID -Continue Namenda 10 mg PO BID -Continue Aricept 5 mg PO HS -Continue Depakote 250 mg PO TID; VPA 70.9 on 11/03/17; VPA 75.9 on 11/06/17 -1:1 for safety -Medicine consult -PT -Disposition planning Estimated Date of D/C: 11/10/17
[2017-11-08] MEDS: Divalproex 125 mg Sprinkle Capsule PO SCH ×3 (09:17→16:41)
[2017-11-09] MEDS: Divalproex 125 mg Sprinkle Capsule PO SCH ×3 (09:20→17:39)
--- NOTE | 2017-11-09 11:54 | PCM.PYCHPN ---
Psychiatric Progress Note - Psychiatric Progress Note Patient seen today, length of contact: Patient evaluated, case discussed with team, chart reviewed Patient Chief Complaint: Patient unable to talk coherently most of the time Problems Identified/Issues Discussed: Patient is improving clinically and seems to be approaching her baseline. She is calmer and less agitated/aggressive. She sleeps well at night. A + O x 1 as per her baseline. Patient unable to answer questions appropriately. Diagnostic Results: VPA 70.9 on 11/03/17; VPA 75.9 on 11/06/17 Medication Change: No Medical Record Reviewed: Yes Consults ordered or reviewed: Medicine, PT Mental Status Examination - Cognitive Function Orientation: Person Memory: Impaired Attention: Poor Concentration: Poor Association: Loose Fund of Knowledge: Poor Decription of patient's judgement and insights: Poor I/J - Mood Mood: Anxious - Affect Affect: Constricted - Formal Thought Process Formal Thought Process: Loosening of associations Psychotic Thoughts and Behaviors: Patient unable to answer questions about AH/VH - Suicidal Ideation Suicidal Ideation: No - Homicidal Ideation Homicidal Ideation: No Goal/Treatment Plan - Goal/Treatment Plan Need for Continued Stay: Remain at risks for inpatient hospitalization, Severe functional impairment Progress Toward Problem(s) and Goals/Treatment Plan: Dementia with behavioral disturbances -Case discussed w/ patient's daughterKarla -Case discussed w/ patient's primary psychiatrist -Continue Seroquel 50 mg PO TID -Continue Namenda 10 mg PO BID -Continue Aricept 5 mg PO HS -Continue Depakote 250 mg PO TID; VPA 70.9 on 11/03/17; VPA 75.9 on 11/06/17 -1:1 for safety -Medicine consult -PT -Disposition planning Estimated Date of D/C: 11/11/17
[2017-11-10] MEDS: Divalproex 125 mg Sprinkle Capsule PO SCH ×3 (08:57→17:28)
--- NOTE | 2017-11-10 11:06 | PCM.PYCHPN ---
Psychiatric Progress Note - Psychiatric Progress Note Patient seen today, length of contact: Patient evaluated, case discussed with team, chart reviewed Patient Chief Complaint: Patient unable to talk coherently most of the time Problems Identified/Issues Discussed: Patient is at her baseline of functioning. She sleeps well at night. A + O x 1 as per her baseline. Patient unable to answer questions appropriately. Diagnostic Results: VPA 70.9 on 11/03/17; VPA 75.9 on 11/06/17 Medication Change: No Medical Record Reviewed: Yes Consults ordered or reviewed: Medicine, PT Mental Status Examination - Cognitive Function Orientation: Person Memory: Impaired Attention: Poor Concentration: Poor Association: Loose Fund of Knowledge: Poor Decription of patient's judgement and insights: Poor I/J - Affect Affect: Constricted - Formal Thought Process Formal Thought Process: Loosening of associations Psychotic Thoughts and Behaviors: Patient unable to answer questions about AH/VH - Suicidal Ideation Suicidal Ideation: No - Homicidal Ideation Homicidal Ideation: No Goal/Treatment Plan - Goal/Treatment Plan Progress Toward Problem(s) and Goals/Treatment Plan: Dementia with behavioral disturbances; patient is now at her baseline of functioning, will refer back to [facility] for placement. -Case discussed w/ patient's daughterKarla -Case discussed w/ patient's primary psychiatrist -Continue Seroquel 50 mg PO TID -Continue Namenda 10 mg PO BID -Continue Aricept 5 mg PO HS -Continue Depakote 250 mg PO TID; VPA 70.9 on 11/03/17; VPA 75.9 on 11/06/17 -Medicine consult -PT -Disposition planning Estimated Date of D/C: 11/11/17
[2017-11-11] MEDS: Divalproex 125 mg Sprinkle Capsule PO SCH ×3 (10:26→21:15)
--- NOTE | 2017-11-11 12:42 | PCM.PYCHPN ---
Psychiatric Progress Note - Psychiatric Progress Note Patient seen today, length of contact: Patient evaluated, case discussed with team, chart reviewed Patient Chief Complaint: Patient unable to talk coherently most of the time Problems Identified/Issues Discussed: Patient is at her baseline of functioning. Daughter is refusing to let the patient be discharged (daughter is POA), due to concerns that she may have injured her hip at the [facility] when she became combative with staff there. We have made several attempts to get a X-ray of the patient, but patient has moved too much and been agitated when we attempt to X-ray her, despite sufficient treatment with PRN medications. Patient does not seem to be have any acute hip pain, nor does she seem to have any decrease in function as per her history. Clinically patient is at her baseline of functioning and can return to [facility] for [facility] terminal placement. Patient has not had any fulls or injuries since admission to the hospital or in the ER. Diagnostic Results: VPA 70.9 on 11/03/17; VPA 75.9 on 11/06/17 Medication Change: No Medical Record Reviewed: Yes Consults ordered or reviewed: Medicine, PT Mental Status Examination - Cognitive Function Orientation: Person Memory: Impaired Attention: Poor Concentration: Poor Association: Loose Fund of Knowledge: Poor Decription of patient's judgement and insights: Poor I/J - Affect Affect: Constricted - Formal Thought Process Formal Thought Process: Loosening of associations Psychotic Thoughts and Behaviors: Patient unable to answer questions about AH/VH - Suicidal Ideation Suicidal Ideation: No - Homicidal Ideation Homicidal Ideation: No Goal/Treatment Plan - Goal/Treatment Plan Progress Toward Problem(s) and Goals/Treatment Plan: Dementia with behavioral disturbances; patient is now at her baseline of functioning, will refer back to [facility] for placement. -Daughter is not agreeable to discharge at this time, will continue to discuss with family -Case discussed w/ patient's primary psychiatrist -Continue Seroquel 50 mg PO TID -Continue Namenda 10 mg PO BID -Continue Aricept 5 mg PO HS -Continue Depakote 250 mg PO TID; VPA 70.9 on 11/03/17; VPA 75.9 on 11/06/17 -Medicine consult -PT -Disposition planning Estimated Date of D/C: 11/12/17
--- NOTE | 2017-11-11 14:05 | RAD ---
PROCEDURE: X-rays of bilateral knees HISTORY: DIFFICULTY WITH AMBULATION COMPARISON: None. TECHNIQUE: AP view of both knees. FINDINGS: The examination is markedly limited due to the combative nature of the patient. Postsurgical changes are seen in the left tibial plateau. No gross displaced fracture is evident. IMPRESSION: Markedly limited examination. No gross displaced acute fracture.
[2017-11-12] MEDS: Divalproex 125 mg Sprinkle Capsule PO SCH ×3 (08:36→20:49)
--- NOTE | 2017-11-12 14:32 | RAD ---
PROCEDURE: Radiographs of the pelvis and bilateral hips HISTORY: Difficult ambulation COMPARISON: None. FINDINGS: BONES: Pelvis: Unremarkable. Right hip:Prior right hip arthroplasty. Left hip:Unremarkable. JOINTS: Right hip: Unremarkable. Left hip: Degenerative changes. Sacroiliac Joints: Poorly evaluated due to overlying bowel gas and stool. Pubic symphysis: Poorly evaluated due to overlying bowel gas and stool. SOFT TISSUES: Normal. OTHER FINDINGS: None. IMPRESSION: Limited evaluation due to the uncooperative nature of the patient. Prior right hip arthroplasty. Left hip degenerative changes.
--- NOTE | 2017-11-12 18:15 | PCM.PYCHPN ---
Psychiatric Progress Note - Psychiatric Progress Note Patient seen today, length of contact: Patient evaluated, case discussed with team, chart reviewed Patient Chief Complaint: pt seen in seated in chair staff report pt can bare weight with two people due to unsteady gait, pt is noted to be irritable when stimulated, staff required to offer frequent verbal redirection redirection necessary for adherence takes rx when crushed, vitals are reportedly stable, pt report when ambulating pt does not appear to be protecting or favoring any particular area. x ray of pelvis and bilateral hips reveal limited evaluation due to the uncooperative nature of pttient. prior right hip arthroplasty. left hip with degenerative changes. results of said xray were read to covering hospitalist today per report. bilateral x rays of knees: markedly limited examination. no gross displace acute fracture. staff report that there is no notable breakdown of skin on pt.. Medical Problems: per chart pt is being followed by hospitalist Diagnostic Results: per chart DSM 5 Symptoms Update: alteration in cognition alteration in mood alteration in self care Medication Change: No Medical Record Reviewed: Yes Consults ordered or reviewed: pt being followed by hospitalist dr crowe pt may be transferred in am to [facility] facility Mental Status Examination - Cognitive Function Orientation: Person Memory: Impaired Attention: Poor Concentration: Poor Association: Loose Fund of Knowledge: Poor Decription of patient's judgement and insights: poor - Mood Mood: Anxious - Affect Affect: Constricted - Formal Thought Process Formal Thought Process: Loosening of associations - Suicidal Ideation Suicidal Ideation: No - Homicidal Ideation Homicidal Ideation: No Goal/Treatment Plan - Goal/Treatment Plan Need for Continued Stay: Remain at risks for inpatient hospitalization, Severe functional impairment Progress Toward Problem(s) and Goals/Treatment Plan: inpt milieu vital signs and clinical observation per protocol and per clinical status adjust meds per clinical status xray results discussed with dr crowe covering hospitalist-pt is cleared medically to return to [facility] psychiatrically appears to be reaching baseline results were discussed with pt's daughter sameer-x ray results of pelvis, hips and knees. review results were discussed with hospitalist before "ready results word for word" from reports. review with pt's daughter that per staff report that pt was pre medicated before xrays but with any patient particularly older pts at risk of possible resp depression w/increased rx-pt 's daughter reports understanding discussed pt to discharged to residential in am dscharge planning in progress Estimated Date of D/C: 11/12/17 - Smoking Cessation Smoking Cessation Initiated: No Reason for not providing: deferrs
[2017-11-13 05:56] VITALS: BP 130/96; PULSE 75; RESP 20; TEMP 97.1
[2017-11-13] MEDS: Divalproex 125 mg Sprinkle Capsule PO SCH (08:32)
== END 2017-11-13 10:15 | disposition home or self-care (01) | DRG 884 ==
LOC: H.ER 23:02 → H.STEP 23:26
PROVIDERS: ADMIT Psychiatry & Neurology Psychiatry; ATTEND Psychiatry & Neurology Psychiatry
PROC: GZHZZZZ Group Psychotherapy (ICD-10-PCS; principal; 2017-10-28)
DX: F01.51 Vascular dementia, unspecified severity, with behavioral disturbance (principal); Z88.0 Allergy status to penicillin